=== PATIENT | female | born 1960 | race Native Hawaiian/Other Pacific Islander ===

== ENCOUNTER 2020-05-06 13:58 | Emergency (ER) | payer BC ==
[~2020-05-06] VITALS: Ht 165.1 cm; Wt 64.9 kg
[2020-05-06 15:03] LABS: PLATELET COUNT 241 K/uL (152-353)
[2020-05-06 15:17] LABS: POTASSIUM 3.7 mmol/L (3.6-5.2)
[2020-05-06 15:21] LABS: PARTIAL THROMBOPLASTIN TIME 19.5 SECONDS (24.5-33.6)
[2020-05-06 20:45] VITALS: TEMP 98.1
[2020-05-06 20:52] VITALS: BP 125/77
== END 2020-05-06 20:53 | disposition short-term general hospital (02) ==
LOC: ED 13:58
PROVIDERS: Hospitalist
PROC: 30233N1 Transfusion of Nonautologous Red Blood Cells into Peripheral Vein, Percutaneous Approach (ICD-10-PCS; principal; 2020-05-06)
DX: K57.92 Diverticulitis of intestine, part unspecified, without perforation or abscess without bleeding (principal); K92.2 Gastrointestinal hemorrhage, unspecified; D64.89 Other specified anemias
CPT/HCPCS: 36430; 80053; 80320; 82150; 82272; 83605; 83690; 85027; 85610; 85730; 86850; 86900; 86901; 86922; 87040; 96360; 96365; 96375; 99284; J1956; J2270; J2405; J3490; P9016; Q9963

== ENCOUNTER 2020-07-24 12:38 | Outpatient (CLI) | payer BC | END 2020-07-24 22:14 | disposition home or self-care (01) | LOC: MAMMO 12:38 | PROVIDERS: ATTEND Internal Medicine | DX: N63.10 Unspecified lump in the right breast, unspecified quadrant (principal) ==

== ENCOUNTER 2022-02-24 01:44 | Emergency (ER) | payer OTHER ==
[~2022-02-24] VITALS: Ht 165.1 cm; Wt 68.0 kg
[2022-02-24 02:49] LABS: POTASSIUM 3.5 mmol/L (3.6-5.2)
[2022-02-24 02:53] LABS: PLATELET COUNT 344 K/uL (152-353)
[2022-02-24 03:16] LABS: PARTIAL THROMBOPLASTIN TIME 23.1 SECONDS (24.5-33.6)
[2022-02-24 07:13] VITALS: BP 160/79; TEMP 97.8
== END 2022-02-24 08:31 | disposition short-term general hospital (02) ==
LOC: ED 01:44
PROVIDERS: Family Medicine
DX: T59.811A Toxic effect of smoke, accidental (unintentional), initial encounter (principal); R06.03 Acute respiratory distress; D64.89 Other specified anemias; X08.8XXA Exposure to other specified smoke, fire and flames, initial encounter; Y92.098 Other place in other non-institutional residence as the place of occurrence of the external cause
CPT/HCPCS: 36600; 80053; 80307; 81002; 82550; 82805; 84484; 85027; 85610; 85730; 93005; 96374; 99284; J1885

== ENCOUNTER 2023-04-15 11:47 | Outpatient (CLI) | payer OTHER | END 2023-04-15 19:18 | disposition home or self-care (01) | LOC: RAD 11:47 | PROVIDERS: ATTEND Nurse Practitioner Family | DX: R10.31 Right lower quadrant pain (principal) ==